=== PATIENT | female | born 1990 | race Two or more races ===

== ENCOUNTER 2025-06-15 19:13 | Inpatient (IN) | payer MEDICAID, OTHER ==
[~2025-06-15] VITALS: Ht 152.4 cm; Wt 92.1 kg
--- NOTE | 2025-06-15 19:43 | ED.PDOC ---
General HPI Comments HPI: 34-year-old female who came to ER for abdominal pain. Patient has been experiencing right lower quadrant abdominal pain for the past 2 days, associated with chills and back pain. States whenever she urinates, the pain in her right lower quadrant worsens. She denies any possibility of . Patient s tates she has low back pain as well. She states she is having pain in bilateral lower quadrants but worse on the right side. Initial Vitals BP:134/88 HR:123 RR:18 O2:96% Temp:98.8 F Past Medical History: Hypertension Past Surgical History: 3 times, tummy tuck Social History: Unremarkable Allergies: Denies HPI: Poor Historian. REVIEW OF SYSTEMS: CONSTITUTIONAL: Denies acute: fever, diaphoresis, generalized weakness. HEAD: Denies acute: headache, photophobia Eyes: Denies acute: Double vision, vision loss, eye pain, eye discharge. EARS: Denies acute: tinnitus, hearing loss, ear discharge, ear pain, THROAT: Denies acute: sore throat, swelling, difficulty swallowing , pain with swallowing, change in voice. NECK: Denies acute: neck pain, neck swelling, stiff neck. HEART: Denies acute : chest pain, palpitations, LUNGS: Denies acute: SOB, wheezing, cough, hemoptysis ABDOMEN: Denies acute: Nausea, Vomiting, diarrhea, melena , hematemesis, hematochezia SKIN: Denies acute: rash, redness, lesions, itchiness. EXTREMITIES: Denies acute: calf pain, numbness, tingling, weakness, denies pain in extremity. Denies acute: Low back pain. Neuro: Denies acute: focal neurological deficit, motor or sensory focal neurological deficit, tremors, seizure like activity, confusion, dizziness, change in mental status, loss of bowel or bladder function, cauda equina like symptoms. : Denies acute: dysuria, hematuria, increase in urinary frequency. PSYCH: Denies acute: hallucination, suicidal ideation, homicidal ideation. FEMALE: Denies acute: abnormal vaginal bleeding, foul odor, unusual discharge. PHYSICAL EXAM: General: ----mild----acute distress, awake and alert. Head: normocephalic, atraumatic. Neck: supple, trachea is midline, no swelling. Throat: Normal phonation. Eyes:, no erythema, no purulent discharge, no proptosis, no icterus. Heart: regular tachycardic, no significant murmur appreciated. Lungs: no apparent respiratory distress, Able to speak in full sentences. No wheezing, no rhonchi, no crackles. No stridors Clear to auscultation bilaterally. Abdomen: Right and left lower quadrant tender to palpation, non distended, soft, no guarding, no rebound, + bowel sounds. Neuro: Awake, Alert, oriented to name, self, situation, follows commands GCS=15. Speech is normal. Skin: no petechia, no purpura, no cyanosis, non-pale, not jaundice. Lower extremities: --no - Pitting edema no deformity, no focal swelling, no calf TTP. Makes eye contact. moves all four extremities. Face: no apparent facial droop. CVA tenderness to percussion bilaterally. Ambulating in the ED independently. ED COURSE: DISCLAIMER: This medical document was created using an electronic medical record system with voice recognition software and computerized dictation system. Although this document has been carefully reviewed, there might still be some phonetic and typographical errors. Occasional wrong-word or "sound-alike" substitutions may have occurred due to the inherent limitations of voice recognition software. These areas are purely typographical due to imperfections of the software programs and do not reflect any compromise in the patient's medical care. Please read the chart carefully and recognize, using context, where these substitutions have occurred. 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 Was a procedure done?: No Differential Diagnosis Kidney stone (Female): Musculoskeletal pain, Ovarian torsion, Pyelonephritis, Renal failure, Strain, Urinary obstruction, Urolithiasis Urinary Problem (Female): Pyelonephritis, Urinary retention, Urolithiasis, UTI X-Ray, Labs, Meds, VS Vital Signs Date Time Temp Pulse Resp B/P (MAP) Pulse Ox O2 Delivery O2 Flow Rate FiO2 06/15/25 20:50 Room Air* 0 21 06/15/25 20:50 100.3 100.3 06/15/25 20:20 101.8 119 18 117/76 (90) 98 101.8 06/15/25 19:17 98.8 123 18 134/88 96 98.8 Lab Test 06/15/25 20:00 Range/Units White Blood Count 13.9 H 4.4-10.8 10^3/uL Red Blood Count 5.05 4.0-5.20 10^6/uL Hemoglobin 15.0 12.2-16.2 g/dL Hematocrit 43.4 36.0-46.0 % Mean Corpuscular Volume 85.9 80.0-100.0 fL Mean Corpuscular Hemoglobin 29.8 28.0-32.0 pg Mean Corpuscular Hemoglobin Concent 34.6 32.0-36.0 g/dL Red Cell Distribution Width 14.0 11.8-14.3 % Platelet Count 188 140-450 10^3/uL Mean Platelet Volume 8.1 6.9-10.8 fL Neutrophils (%) (Auto) 80.7 H 37.0-80.0 % Lymphocytes (%) (Auto) 12.3 10.0-50.0 % Monocytes (%) (Auto) 6.5 0.0-12.0 % Eosinophils (%) (Auto) 0.3 0.0-7.0 % Basophils (%) (Auto) 0.2 0.0-2.0 % Neutrophils # (Auto) 11.2 H 1.6-8.6 10 ^3/uL Lymphocytes # (Auto) 1.7 0.4-5.4 10 ^3/uL Monocytes # (Auto) 0.9 0-1.3 10 ^3/uL Eosinophils # (Auto) 0 0-0.8 10 ^3/uL Basophils # (Auto) 0 0-0.2 10 ^3/uL Nucleated Red Blood Cells 0.0 % Prothrombin Time 10.9 9.3-11.8 sec Prothrombin Time INR 1.03 0.9-1.15 Activated Partial Thromboplast Time 29.1 24.5-34.5 SEC Sodium Level 138 136-145 mmol/L Potassium Level 3.7 3.5-5.1 mmol/L Chloride Level 102 98-107 mmol/L Carbon Dioxide Level 26 20-31 mmol/L Anion Gap 10 5-15 Blood Urea Nitrogen 8 L 9-23 mg/dL Creatinine 0.82 0.550-1.02 mg/dL Glomerular Filtration Rate Calc 95 >90 mL/min BUN/Creatinine Ratio 9.8 L 10.0-20.0 Serum Glucose 92 74-106 mg/dL Hemoglobin A1c Pending Lactic Acid Level 1.2 0.4-2.0 mmol/L Calcium Level 9.4 8.7-10.4 mg/dL Total Bilirubin 0.9 0.2-1.0 mg/dL Aspartate Amino Transferase (AST) 52 H 13-40 U/L Alanine Aminotransferase (ALT) 100 H 7-40 U/L Alkaline Phosphatase 82 46-116 U/L Total Protein 7.8 5.7-8.2 g/dL Albumin 4.6 3.2-4.8 g/dL Triglycerides Level 110 < 150 mg/dL Cholesterol Level 179 < 200 mg/dL LDL Cholesterol 113 H < 100 mg/dL HDL Cholesterol 56 40-59 mg/dL Lipase 30 12-53 U/L Current Medications Medications (Trade) Dose Ordered Sig/Luz Route Start Time Stop Time Status Last Admin Lactated Ringer's 1,700 ml @ 1,700 mls/hr ONCE ONCE IV 06/15/25 20:00 06/15/25 20:59 DC 06/15/25 21:00 Cefepime HCl 50 ml @ 50 mls/hr ONCE ONCE IV 06/15/25 20:15 06/15/25 21:14 DC 06/15/25 20:43 [place] [address] Ph: [phone] DIAGNOSTIC IMAGING Diagnostic Imaging Report : [id number] Signed PATIENT: JOHN WYATT ACCT: [id number] UNIT: [id number] : 1990 LOC: OVERFLOW ROOM / BED: [facility]-ER / A AGE / SEX: 34 / F ADM STATUS: ADM IN SERVICE 04 ORDERING PHYSICIAN: JOSE GARCIA DO PROCEDURE(s): ABPL - CT AB PEL WO CON-NO ORAL OR IV REASON: abd pain ORDER NUMBER(s): [id number], ACCESSION NUMBER(s): [id number] Exam: CT CT AB PEL WO CON-NO ORAL OR IV History: abd pain Comparison Study: None TECHNIQUE: Multidetector CT of the abdomen and pelvis was performed from lung bases to pubic symphysis. Imaging was performed without IV contrast. Axial, coronal, and sagittal multiplanar reformats were obtained from the axial data set by the technologist. RADIATION DOSE: CTDI vol 14.65 mGy. DLP 970.4 mGy.cm Findings: Limited evaluation of the solid organs in the absence of IV contrast. Lungs: The lung bases are clear. Liver: Diffuse hypoattenuation of the liver suggestive of hepatic steatosis. Mild hepatomegaly. Spleen: Unremarkable. Pancreas: Unremarkable. Gallbladder: Unremarkable. Adrenals: Unremarkable Kidneys: Left renal cysts. No hydronephrosis. Pelvic Viscera: Unremarkable. Vasculature: Unremarkable. Retroperitoneum: Unremarkable. Bowel: No bowel obstruction. No CT evidence of appendicitis. Musculoskeletal: Unremarkable. Soft tissues: Unremarkable Impression: 1. No acute abdominopelvic abnormality. 2. Hepatomegaly and hepatic steatosis. ATED BY: JONH CRESPO MD DICTATED DATE/TIME: 06/15/252110 SIGNED BY: JONH CRESPO MD SIGNED DATE/TIME: 06/15/252110 CC: [place] [address] Ph: [phone] DIAGNOSTIC IMAGING Diagnostic Imaging Report : [id number] Signed PATIENT: JOHN WYATT ACCT: [id number] UNIT: [id number] : 1990 LOC: OVERFLOW ROOM / BED: [address] [place] [address] / AGE / SEX: 34 / F ADM STATUS: ADM IN SERVICE 56 ORDERING PHYSICIAN: JOSE GARCIA DO PROCEDURE(s): CXRP - CHEST PORTABLE REASON: sepsis ORDER NUMBER(s): [id number], ACCESSION NUMBER(s): [id number] INDICATION: sepsis TECHNIQUE: Frontal view of the chest. COMPARISON: None FINDINGS/IMPRESSION: The lungs are clear. The cardiomediastinal silhouette is unremarkable. No pleural effusion or pneumothorax. No acute osseous abnormality. ATED BY: JONH CRESPO MD DICTATED DATE/TIME: 06/15/252128 SIGNED BY: JONH CRESPO MD SIGNED DATE/TIME: 06/15/252128 CC: Time of 1ST Reevaluation: 19:43 Reevaluation 1ST: Unchanged Patient Education/Counseling: Diagnosis, Treatment Family Education/Counseling: Diagnosis, Treatment SEPSIS Sepsis Screen Date sepsis recognized/suspect: Jun 15, 2025 Time Sepsis recognized/suspect: 1918 Recent Procedure: No On Antibiotic Therapy: No Respiratory Rate >20: No Heart Rate >90: Yes Temp<36 C (96.8 F) or >38.3 C: No SBP <90 or MAP <65 mmHG: No New Acute Mental Status Change: No Is the patient on CPAP, BIPAP,: No Physician Orders Chest Portable (06/15/25 19:57) Accucheck (06/15/25 19:57) Blood Culture (06/15/25 19:57) Notify Md If Map <65 Or Bp<90 (06/15/25 19:57) If Map<65 Start Vasopressor (06/15/25 19:57) Sepsis Reassesment After Fluid (06/15/25 20:57) Ct Ab Pel Wo Con-No Oral Or Iv (06/15/25 20:05) Cefepime 1gm/50ml (Maxipime 1gm/50ml) (06/16/25 06:00) Vital Signs Date Time Temp Pulse Resp B/P (MAP) Pulse Ox O2 Delivery O2 Flow Rate FiO2 06/15/25 20:50 Room Air* 0 21 06/15/25 20:50 100.3 100.3 06/15/25 20:20 101.8 119 18 117/76 (90) 98 101.8 06/15/25 19:17 98.8 123 18 134/88 96 98.8 Laboratory Tests Test 06/15/25 20:00 Lactic Acid Level 1.2 mmol/L (0.4-2.0) White Blood Count 13.9 10^3/uL (4.4-10.8) H Medications Medications Dose Ordered Sig/Luz Route Start Time Stop Time Status Last Admin Dose Admin Cefepime HCl 50 ml @ 50 mls/hr ONCE ONCE IV 06/15/25 20:15 06/15/25 21:14 DC 06/15/25 20:43 Lactated Ringer's 1,700 ml @ 1,700 mls/hr ONCE ONCE IV 06/15/25 20:00 06/15/25 20:59 DC 06/15/25 21:00 Critical Care Note Critical Care Time?: No Stability Stability form required: No I personally scribed for JOSE GARCIA DO ([email or web address]) on 06/15/25 at 19:43. Electronically submitted by Rodriguez Thompson ([facility] I personally scribed for JOSE GARCIA DO ([email or web address]) on 06/15/25 at 19:49. Electronically submitted by Rodriguez Thompson ([facility]). I personally scribed for JOSE GARCIA DO ([email or web address]) on 06/15/25 at 19:54. Electronically submitted by Rodriguez Thompson ([facility]). I personally scribed for JOSE GARCIA DO ([email or web address]) on 06/15/25 at 21:57. Electronically submitted by Rodriguez Thompson ([facility]). JOSE GARCIA DO Jun 15, 2025 19:43
[2025-06-15 20:26] LABS: Hematocrit 43.4 % (36.0-46.0); Hemoglobin 15.0 g/dL (12.2-16.2); Mean Corpuscular Hemoglobin 29.8 pg (28.0-32.0); Mean Corpuscular Volume 85.9 fL (80.0-100.0); Nucleated Red Blood Cells % 0.0 %
[2025-06-15] MEDS: LACTATED RINGER'S 1,700 ML IV ONE (20:30)
[2025-06-15 20:38] LABS: Albumin 4.6 g/dL (3.2-4.8); Alkaline Phosphatase 82 U/L (46-116); Anion Gap 10 (5-15); BUN/Creatinine Ratio 9.8 (10.0-20.0); Calcium 9.4 mg/dL (8.7-10.4); Carbon Dioxide 26 mmol/L (20-31); Chloride 102 mmol/L (98-107); Glucose 92 mg/dL (74-106); Potassium 3.7 mmol/L (3.5-5.1); Sodium 138 mmol/L (136-145); Total Protein 7.8 g/dL (5.7-8.2)
[2025-06-15 20:39] LABS: Alanine Aminotransferase 100 U/L (7-40); Bilirubin, Total 0.9 mg/dL (0.2-1.0); Blood Urea Nitrogen 8 mg/dL (9-23)
[2025-06-15 20:42] LABS: INR 1.03 (0.9-1.15); Partial Thromboplastin Time 29.1 SEC (24.5-34.5); Prothrombin Time 10.9 sec (9.3-11.8)
[2025-06-15] MEDS: CEFEPIME 1GM/50ML 50 ML IV ONE (20:43)
--- NOTE | 2025-06-15 21:13 | DVH ---
Exam: CT CT AB PEL WO CON-NO ORAL OR IV History: abd pain Comparison Study: None TECHNIQUE: Multidetector CT of the abdomen and pelvis was performed from lung bases to pubic symphysi s. Imaging was performed without IV contrast. Axial, coronal, and sagittal multiplanar reformats were obtained from the axial data set by the technologist. RADIATION DOSE: CTDI vol 14.65 mGy. DLP 970.4 mGy.cm Findings: Limited evaluation of the solid organs in the absence of IV contrast. Lungs: The lung bases are clear. Liver: Diffuse hypoattenuation of the liver suggestive of hepatic steatosis. Mild hepatomegaly. Spleen: Unremarkable. Pancreas: Unremarkable. Gallbladder: Unremarkable. Adrenals: Unremarkable Kidneys: Left renal cysts. No hydronephrosis. Pelvic Viscera: Unremarkable. Vasculature: Unremarkable. Retroperitoneum: Unremarkable. Bowel: No bowel obstruction. No CT evidence of appendicitis. Musculoskeletal: Unremarkable. Soft tissues: Unremarkable Impression: 1. No acute abdominopelvic abnormality. 2. Hepatomegaly and hepatic steatosis.
--- NOTE | 2025-06-15 21:16 | DVHHPRES ---
History of Present Illness Resident Creating Document: KIM CLIFTON RESIDENT History of Present Illness 34-year-old female with no past medical history presented with complaints of lower abdominal pain right greater than left and some associated chills for one day. Patient mentioned that yesterday she started having abdominal pain which is pressure-like, on and off, no significant relieving or aggravating factors, radiating to back, associated with right greater than left back pain, chills and fever. Patient mentioned associated headache which is 5/10, improved with ibuprofen and paracetamol and mild neck pain. pt mentions whenever she urinates, the pain in her right lower quadrant worsens, but she did not have any symptoms of dysuria Patient denied any nausea, vomiting, chest pain, shortness of breath, dizziness . Denied similar complaints in the past Past medical history None Past surgical history section and subsequent tubectomy one year ago Social history Denied smoking, marijuana, alcohol, any other drug intake Lives with the Medication history None Allergic history None Family history Nonsignificant Menstrual history Last menstrual period May 30, 2025 Status post tubectomy Review of Systems Review of Systems Review of system As done in the [facility] Allergies: Coded Allergies: NO KNOWN ALLERGIES (Unverified , 06/15/25) Medications Current Medications Medications Dose Ordered Sig/Luz Route Start Time Stop Time Status Last Admin Dose Admin Cefepime HCl 50 ml @ 12.5 mls/hr Q8HR IV 06/16/25 06:00 Acetaminophen 650 mg Q6HP PRN PO 06/15/25 21:00 UNV Exam Vital Signs Vital Signs Date Time Temp Pulse Resp B/P (MAP) Pulse Ox O2 Delivery O2 Flow Rate FiO2 06/15/25 20:20 101.8 119 18 117/76 (90) 98 101.8 Exam Examination General Appearance: Alert, Oriented X3, Cooperative, No acute distress HEENT: EOMI Respiratory: Clear to auscultation, Normal air movement Cardiovascular: Regular rate, Normal S1, Normal S2 Abdominal: Bilateral lower abdominal tenderness right greater than left, no guarding, no rigidity, soft, bilateral flank tenderness, right greater than left Extremities: No cyanosis, No edema, Normal pulses, No tenderness/swelling Skin: No rashes, No breakdown Neuro: Normal speech and tone Labs/Xrays Labs Test 06/15/25 20:00 Range/Units White Blood Count 13.9 H 4.4-10.8 10^3/uL Red Blood Count 5.05 4.0-5.20 10^6/uL Hemoglobin 15.0 12.2-16.2 g/dL Hematocrit 43.4 36.0-46.0 % Mean Corpuscular Volume 85.9 80.0-100.0 fL Mean Corpuscular Hemoglobin 29.8 28.0-32.0 pg Mean Corpuscular Hemoglobin Concent 34.6 32.0-36.0 g/dL Red Cell Distribution Width 14.0 11.8-14.3 % Platelet Count 188 140-450 10^3/uL Mean Platelet Volume 8.1 6.9-10.8 fL Neutrophils (%) (Auto) 80.7 H 37.0-80.0 % Lymphocytes (%) (Auto) 12.3 10.0-50.0 % Monocytes (%) (Auto) 6.5 0.0-12.0 % Eosinophils (%) (Auto) 0.3 0.0-7.0 % Basophils (%) (Auto) 0.2 0.0-2.0 % Neutrophils # (Auto) 11.2 H 1.6-8.6 10 ^3/uL Lymphocytes # (Auto) 1.7 0.4-5.4 10 ^3/uL Monocytes # (Auto) 0.9 0-1.3 10 ^3/uL Eosinophils # (Auto) 0 0-0.8 10 ^3/uL Basophils # (Auto) 0 0-0.2 10 ^3/uL Nucleated Red Blood Cells 0.0 % Prothrombin Time 10.9 9.3-11.8 sec Prothrombin Time INR 1.03 0.9-1.15 Activated Partial Thromboplast Time 29.1 24.5-34.5 SEC Sodium Level 138 136-145 mmol/L Potassium Level 3.7 3.5-5.1 mmol/L Chloride Level 102 98-107 mmol/L Carbon Dioxide Level 26 20-31 mmol/L Anion Gap 10 5-15 Blood Urea Nitrogen 8 L 9-23 mg/dL Creatinine 0.82 0.550-1.02 mg/dL Glomerular Filtration Rate Calc 95 >90 mL/min BUN/Creatinine Ratio 9.8 L 10.0-20.0 Serum Glucose 92 74-106 mg/dL Lactic Acid Level 1.2 0.4-2.0 mmol/L Calcium Level 9.4 8.7-10.4 mg/dL Total Bilirubin 0.9 0.2-1.0 mg/dL Aspartate Amino Transferase (AST) 52 H 13-40 U/L Alanine Aminotransferase (ALT) 100 H 7-40 U/L Alkaline Phosphatase 82 46-116 U/L Total Protein 7.8 5.7-8.2 g/dL Albumin 4.6 3.2-4.8 g/dL SEPSIS Sepsis Screen Date sepsis recognized/suspect: Jun 15, 2025 Time Sepsis recognized/suspect: 1918 Recent Procedure: No On Antibiotic Therapy: No Respiratory Rate >20: No Heart Rate >90: Yes Temp<36 C (96.8 F) or >38.3 C: No SBP <90 or MAP <65 mmHG: No New Acute Mental Status Change: No Is the patient on CPAP, BIPAP,: No Physician Orders Urinalysis (06/15/25 19:57) Chest Portable (06/15/25 19:57) Accucheck (06/15/25 19:57) Blood Culture (06/15/25 19:57) Notify Md If Map <65 Or Bp<90 (06/15/25 19:57) If Map<65 Start Vasopressor (06/15/25 19:57) Sepsis Reassesment After Fluid (06/15/25 20:57) Cefepime 1gm/50ml (Maxipime 1gm/50ml) (06/15/25 20:15) Ct Ab Pel Wo Con-No Oral Or Iv (06/15/25 20:05) Cefepime 1gm/50ml (Maxipime 1gm/50ml) (06/16/25 06:00) Admit (06/15/25 21:00) Code Status (06/15/25 21:00) Regular Diet (06/16/25 Breakfast) Acetaminophen Tablet (Tylenol Tablet) (06/15/25 21:00) Notify Md Of Changes From Base (06/15/25 21:00) Advance Directive (06/15/25 21:00) Ambulate Every 4hours Q4H (06/15/25 21:00) Oxygen By Nasal Cannula (06/15/25 21:00) Stat Ekg For Chest Pain (06/15/25 21:00) Notify Md Of Changes From Base (06/15/25 21:00) Panel Coverer For 24 Hours (06/15/25 21:00) Emergency Dysrhythmia Protocol (06/15/25 21:00) Rhythm Strips Once Every Shift (06/15/25 21:00) Electrocardigram (06/15/25 21:00) Lipase (06/15/25 21:00) Urinalysis (06/15/25 21:00) Urine Bacterial Culture (06/15/25 21:00) Mrsa Screen (06/15/25 21:00) Vital Signs Date Time Temp Pulse Resp B/P (MAP) Pulse Ox O2 Delivery O2 Flow Rate FiO2 06/15/25 20:20 101.8 119 18 117/76 (90) 98 101.8 06/15/25 19:17 98.8 123 18 134/88 96 98.8 Laboratory Tests Test 06/15/25 20:00 Lactic Acid Level 1.2 mmol/L (0.4-2.0) White Blood Count 13.9 10^3/uL (4.4-10.8) H Medications Medications Dose Ordered Sig/Luz Route Start Time Stop Time Status Last Admin Dose Admin Cefepime HCl 50 ml @ 50 mls/hr ONCE ONCE IV 06/15/25 20:15 06/15/25 21:14 06/15/25 20:43 50 MLS/HR Assessment/Plan Assessment/Plan Assessment/plan # sepsis due to likely UTI -IV fluids 30 cc/kg IV antibiotics cefepime Blood culture Lactic acid Urine culture # complicated UTI with pyelonephritis CT abdominal pelvis IV antibiotics Urine culture # Hepatomegaly and hepatic steatosis 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 Bird Plan discussed with: Patient, Other My Orders Orders - KIM CLIFTON RESIDENT Procedure Category Date Status Time Admit ADMIT 06/15/25 Transmitted 21:00 Code Status CODE 06/15/25 Transmitted 21:00 Regular Diet DIET 06/16/25 Transmitted Breakfast Acetaminophen Tablet PHA 06/15/25 Logged (Tylenol Tablet) 21:00 Notify Md Of Changes [facility] 06/15/25 In Process From Base 21:00 Advance Directive [facility] 06/15/25 In Process 21:00 Ambulate Every 4hours [facility] 06/15/25 In Process 21:00 Oxygen By Nasal RT 06/15/25 Transmitted Cannula 21:00 Stat Ekg For Chest [facility] 06/15/25 In Process Pain 21:00 Notify Md Of Changes [facility] 06/15/25 In Process From Base 21:00 Panel Coverer For [facility] 06/15/25 In Process 24 Hours 21:00 Emergency Dysrhythmia [facility] 06/15/25 In Process Protocol 21:00 Rhythm Strips Once [facility] 06/15/25 In Process Every Shift 21:00 Electrocardigram EKG 06/15/25 Logged 21:00 Lipase LAB 06/15/25 Logged 21:00 Urinalysis LAB 06/15/25 Logged 21:00 Urine Bacterial JACEY 06/15/25 Logged Culture 21:00 Mrsa Screen JACEY 06/15/25 Logged 21:00 Date of Service: Jun 15, 2025 Billing Provider: ANNI BIRD MD Common Visit Codes: 41628-BEHFFUX INP/OBS CARE (HIGH) Secondary Visit Codes: 82373-[id number] CARE PLAN 30 MINUTES KIM CLIFTON RESIDENT Jun 15, 2025 21:16
[2025-06-15] MEDS ORDERED: ONDANSETRON HCL 4 MG/2 ML VIAL IV PRN (21:30)
--- NOTE | 2025-06-15 21:31 | DVH ---
INDICATION: sepsis TECHNIQUE: Frontal view of the chest. COMPARISON: None FINDINGS/IMPRESSION: The lungs are clear. The cardiomediastinal silhouette is unremarkable. No pleural effusion or pneumo thorax. No acute osseous abnormality.
[2025-06-15 21:32] LABS: Urine Protein, UAD Negative (Negative)
[2025-06-15 21:47] LABS: Triglycerides 110 mg/dL (< 150)
[2025-06-15 21:49] LABS: Cholesterol 179 mg/dL (< 200); HDL Cholesterol 56 mg/dL (40-59)
--- NOTE | 2025-06-15 23:02 | DVH ---
Procedure: US PELVIC 06/15/2025 09:53 PM Indication: lower abd pain Comparison: US TRANSVAGINAL US NON OB on DOS: 06/15/25 Technique: Real-time grayscale and color images were obtained . FINDINGS: Limited evaluation. UTERUS: Anteverted, measuring 11.7 x 5.3 x 6.6 cm in length. Homogeneous myometrium without a discr ete lesion. Small cystic lesions in the region of the cervix. ENDOMETRIAL STRIPE: 6 mm in thickness. Homogenous echotexture. No fluid in the endometrial canal. CERVIX: Few subcentimeter simple Nabothian cysts are seen. RIGH OVARY: 4.2 x 3.1 x 3.5 cm in length. 23 mL in volume. Preserved vascular flow. 2.8 cm right ad nexal cyst. LEFT OVARY: Not visualized. OTHER: None. IMPRESSION: 1. 2.8 cm right adnexal cyst.
[2025-06-16] VITALS (8 sets, daily range): BP systolic 106–136; BP diastolic 48–90; PULSE 83–106; RESP 15–18; TEMP 98–99.8; O2SAT 97–98
[2025-06-16] MEDS: ACETAMINOPHEN 325 MG TAB PO PRN (00:05)
[2025-06-16 05:18] LABS: Hematocrit 39.1 % (36.0-46.0); Hemoglobin 13.0 g/dL (12.2-16.2); Mean Corpuscular Hemoglobin 29.1 pg (28.0-32.0); Mean Corpuscular Volume 87.3 fL (80.0-100.0); Nucleated Red Blood Cells % 0.0 %
[2025-06-16] MEDS: LACTATED RINGER'S 1,000 ML IV SCH (05:29)
[2025-06-16 05:35] LABS: Alkaline Phosphatase 68 U/L (46-116); Carbon Dioxide 25 mmol/L (20-31); Chloride 106 mmol/L (98-107)
[2025-06-16 05:36] LABS: Albumin 3.8 g/dL (3.2-4.8); Anion Gap 10 (5-15); BUN/Creatinine Ratio 10.1 (10.0-20.0); Bilirubin, Total 0.8 mg/dL (0.2-1.0); Glucose 103 mg/dL (74-106); Magnesium 1.9 mg/dL (1.6-2.6); Potassium 3.7 mmol/L (3.5-5.1); Sodium 141 mmol/L (136-145); Total Protein 6.5 g/dL (5.7-8.2)
[2025-06-16 05:38] LABS: Alanine Aminotransferase 70 U/L (7-40); Blood Urea Nitrogen 8 mg/dL (9-23); Calcium 8.7 mg/dL (8.7-10.4)
[2025-06-16] MEDS: CEFEPIME 1GM/50ML 50 ML IV SCH (05:52)
[2025-06-16] MEDS: VANCOMYCIN 1GM/250ML KIT 250 ML IV ONE (06:48)
[2025-06-16] MEDS: SODIUM CHLORIDE 0.9% 1,000 ML IV ONE (09:00)
--- NOTE | 2025-06-16 12:42 | DVH ---
INDICATION: Evaluate gallbladder TECHNIQUE: Multiple real-time sonographic images of the abdomen were obtained. COMPARISON: None FINDINGS: Increased parenchymal echogenicity consistent steatosis. The liver measures 16.7 cm. No in trahepatic biliary ductal dilatation is noted. The gallbladder wall measures 0.24 cm and is unremarkable. Gallstones. The common duct measures 0 .4 cm and is unremarkable. No pericholecystic fluid is noted. Negative sonographic Angeles's sign The right kidney measures 9.1cm. No hydronephrosis. The pancreas is not well visualized due to obscuration from bowel gas. The visualized portions of the IVC and aorta are grossly unremarkable. IMPRESSION: 1. Cholelithiasis with a negative sonographic angeles's sign.
[2025-06-16] MEDS ORDERED: IOHEXOL 300 MG/ML 100ML BOTTLE IJ ONE (13:19)
--- NOTE | 2025-06-16 14:02 | DVH ---
EXAM DESCRIPTION: CT CT AB PEL WITH IV CON ONLY CLINICAL HISTORY: R/O APPENDICITIS COMPARISON: US PELVIC on DOS: 06/15/25, CT CT AB PEL WO CON-NO ORAL OR IV on DOS: 06/15/25 TECHNIQUE: CT abdomen and pelvis with IV contrast was performed. Coronal and sagittal MPR images were generated. 17.08 CTDI, DLP = 17.08 / 950.87 Dose reduction technique with one or more of the following methods was performed: Automated exposure control, adjustment of the mA and/or kV according to patient size, use of iterative reconstruction te chnique FINDINGS: Lower chest: Clear lung bases. Liver: Diffusely decreased in attenuation. . Biliary: Noncalcified gallstones in the gallbladder. No gallbladder wall thickening. No pericholecyst itc fluid.. No biliary ductal dilatation. Pancreas: No fat stranding or focal lesion. Spleen: Normal in size.. No abnormalities detected Adrenal glands: No nodularity. Kidneys: Symmetric enhancement. No hydroureteronephrosis. 5 cm left renal cyst. Bladder: No bladder wall thickening. Reproductive organs: Normal. Bowel: No bowel wall thickening or dilatation. Normal appendix. Peritoneum: No free fluid. No free air. Vessels: Normal caliber abdominal aorta. Lymph nodes: No suspicious lymph nodes. Soft tissues: Unremarkable. . Osseous structures: No acute fracture or subluxation. No suspicious osseous lesions. Degenerative c hanges of the visualized thoracolumbar spine. IMPRESSION: 1. No evidence of appendicitis. 2. Cholelithiasis without evidence of acute cholecystitis. 3. Hepatic steatosis.
--- NOTE | 2025-06-16 16:22 | DVHPNRES ---
Progress Note Date Seen: Jun 16, 2025 Resident Creating Document: THOMPSON CASAREZ RESIDENT Medical Necessity Reason Pt with a Central, PICC or Fol: No Subjective Review of Systems Brief history on admission: 34-year-old female with past medical history of irritable bowel syndrome presented with complaints of lower abdominal pain right greater than left and some associated chills for one day. She described pain as sharp, 10/10, increases with movement and urination, radiates to right flank, associated with subjective fever and headaches. She has history of UTI with last episode in October this year, managed with antibiotic taken at home, unsure of antibiotic (obtain during a visit in [place]). Her last menstrual period was 05/30/2025, 4 day irregular cycle. She also reported an episode of bloody discharge per vagina last week outside of menstrual cycle. Denies any dysuria, chest pain, shortness of breath, nausea, vomiting, diarrhea, constipation. PMHx: Irritable bowel syndrome PSHx: section, liposuction Social history: Denies smoking, drug use. Occasional alcohol use. Full code, next to kin is . Home medication: Multivitamin Allergic history: No known allergies ROS: Constitutional: Denies weight loss, fever and chills. HEENT: Denies changes in vision and hearing. Respiratory: Denies shortness of breath and cough Cardiovascular: Denies chest discomfort or palpitations GI: Abdominal pain. Denies nausea, vomiting and diarrhea. : Bloody discharge per vagina. Denies dysuria and urinary frequency. Musculoskeletal: Denies myalgias and joint pain Skin: Denies rash and pruritus. Neurological: Denies dizziness, headache, vision or hearing problems 06/16/2025: Patient was examined at bedside today. Continues to complain of abdominal pain. Objective vital signs Vital Sign Date Time Temp Pulse Resp B/P (MAP) Pulse Ox O2 Delivery O2 Flow Rate FiO2 06/16/25 12:34 98.2 103 17 117/79 (92) 97 98.2 06/16/25 08:00 Room Air* 0 21 Total Intake and Output 06/15/25 06/15/25 06/16/25 15:00 23:00 07:00 Intake Total 50 ml 900 ml Balance 50 ml 900 ml medications Current Medications Medications Dose Ordered Sig/Luz Route Start Time Stop Time Status Last Admin Dose Admin Cefepime HCl 50 ml @ 12.5 mls/hr Q8HR IV 06/16/25 06:00 06/16/25 14:44 12.5 MLS/HR Acetaminophen 650 mg Q6HP PRN PO 06/15/25 21:00 06/16/25 05:51 650 MG Ondansetron HCl 4 mg Q4HPRN PRN IV 06/15/25 21:30 Metronidazole 100 ml @ 100 mls/hr Q8H IV 06/16/25 12:00 06/16/25 12:05 100 MLS/HR Examination General: Patient alert and oriented in person, place and time. Patient following commands. HEENT: Normocephalic, atraumatic, moist mucous membranes Respiratory/pulmonary: Clear lungs bilaterally, vesicular murmurs present in almost all lung martell, no associated crackles or wheezes. Cardiovascular: Normal heart sounds S1 and S2 with no associated murmurs Abdomen: Lower abdominal tenderness more pronounced in the right side of the abdomen, right flank tenderness on deep palpation Extremities: There is no peripheral edema present at the lower extremities. Peripheral Pulses: 3+ Radial (R). 3+ Radial (L). 3+ Dorsalis pedis (R). 3+ Dorsalis pedis(L) Skin: No rashes or pruritus, there is no sacral edema present at this time. Neurological: Intact cranial nerves with no focal neurologic deficits laboratory and microbiology Laboratory Tests 06/16/25 04:34 Test 06/16/25 04:34 Range/Units Serum Glucose 103 74-106 mg/dL Microbiology Date/Time Source Procedure Growth Status 06/15/25 21:18 Nose MRSA Screen - Final Complete 06/15/25 21:18 Voided Urine Urine Culture - Preliminary Resulted Problem List/Assessment/Plan Problem List/Assessment/Plan Sepsis due to below Complicated UTI with pyelonephritis, possible Pelvic inflammatory disease Right adnexal cyst Pelvic ultrasound shows 2.8 cm right adnexal cyst IV fluids 30 cc/kg IV antibiotics cefepime Blood culture, urine culture, ordered; chlamydia, gonorrhea, hepatitis, COVID, influenza serology ordered. Lactic acid WNL No MRSA detected in nose Hepatomegaly and hepatic steatosis likely due to NAFLD Mild Transaminitis due to NAFLD Monitor CMP Hstory of section History of tubectomy Cholelithiasis without acute cholecystitis Hepatic steatosis Appendicitis, ruled out CT shows cholelithiasis, hepatic steatosis. Negative for appendicitis DIET: NPO DVT PROPHYLAXIS: Lovenox GI PROPHYLAXIS: Protonix CODE STATUS: Goals of care discussed with patient at bedside for more than 16 minutes. Full code DISPOSITION: Telemetry Patient's status and plan discussed with the patient. Case discussed with Dr. Calvo Plan discussed with: Patient, Spouse, Other (Nurses) My Orders My Orders Orders - THOMPSON CASAREZ Procedure Category Date Status Time Acute Hepatitis Panel LAB 06/16/25 In Process 08:41 Chlamydia/Gc LAB 06/16/25 In Process Amplification 11:18 Npo (Nothing By DIET 06/16/25 Transmitted Mouth) Diet Lunch Ct Ab Pel With Iv Con CT 06/16/25 Resulted Only 12:59 Date of Service: Jun 16, 2025 Billing Provider: THOMPSON CASAREZ Common Visit Codes: [id number] INP/OBS CARE(HIGH) THOMPSON CASAREZ Jun 16, 2025 16:22
[2025-06-16] MEDS: PANTOPRAZOLE 40 MG TAB PO ONE (17:55)
[2025-06-16] MEDS: ENOXAPARIN SOD 40 MG/0.4 ML SYRINGE SC ONE (17:55)
[2025-06-17 01:00] VITALS: BP 124/70; PULSE 84; RESP 18; TEMP 97.5; O2SAT 97
[2025-06-17 05:00] VITALS: BP 118/79; PULSE 85; RESP 16; TEMP 97.5; O2SAT 98
[2025-06-17] MEDS: PANTOPRAZOLE 40 MG TAB PO SCH (05:26)
[2025-06-17 06:33] LABS: Hematocrit 39.7 % (36.0-46.0); Hemoglobin 13.2 g/dL (12.2-16.2); Mean Corpuscular Hemoglobin 28.9 pg (28.0-32.0); Mean Corpuscular Volume 86.8 fL (80.0-100.0); Nucleated Red Blood Cells % 0.0 %
[2025-06-17 06:52] LABS: Chloride 105 mmol/L (98-107); Potassium 3.6 mmol/L (3.5-5.1); Sodium 141 mmol/L (136-145)
[2025-06-17 06:53] LABS: Anion Gap 11 (5-15); Carbon Dioxide 25 mmol/L (20-31)
[2025-06-17 06:54] LABS: Calcium 8.8 mg/dL (8.7-10.4)
[2025-06-17 06:58] LABS: Glucose 99 mg/dL (74-106)
[2025-06-17 06:59] LABS: BUN/Creatinine Ratio 10.1 (10.0-20.0)
[2025-06-17 07:25] LABS: Blood Urea Nitrogen 7 mg/dL (9-23)
[2025-06-17 08:00] VITALS: PULSE 88; RESP 16; O2SAT 98
[2025-06-17 09:00] VITALS: BP 117/78; PULSE 88; RESP 16; TEMP 98.2; O2SAT 98
[2025-06-17] MEDS: ENOXAPARIN SOD 40 MG/0.4 ML SYRINGE SC SCH (09:20)
[2025-06-17 10:48] LABS: Albumin 3.9 g/dL (3.2-4.8); Alkaline Phosphatase 74.0 U/L (46-116); Bilirubin, Direct 0.2 mg/dL (<0.3); Bilirubin, Total 0.5 mg/dL (0.2-1.0); Total Protein 6.8 g/dL (5.7-8.2)
[2025-06-17 10:52] LABS: Alanine Aminotransferase 62.0 U/L (7-40)
[2025-06-17] MEDS ORDERED: METR-344 PO (11:08)
[2025-06-17] MEDS ORDERED: DOXY-286 PO (11:08)
[2025-06-17 11:13] LABS: Hepatitis B Surface Antigen Negative (Negative); Hepatitis C Antibody Negative (Negative)
[2025-06-17 12:30] VITALS: BP 120/78; PULSE 82; RESP 16; TEMP 36.8; O2SAT 96
--- NOTE | 2025-06-17 12:39 | DVHINCON2 ---
Date of service: Jun 17, 2025 Referring Physician hospoitalist Reason for Consultation ovarian cyst History of Present Illness pt is admitte dfor possible sepsis and pyelo.she denies having wilma aub or pelvic pain. last pap was 2 yrs ago,she has hx of abn pap.she denies any dyspaurina and dysmenorrhea pelvic us reveals 2.8 cm simple ovarian cyst Past Medical History na Past Surgical History 3cs,salpingectomy vs tubal ligation Family History na Social History no tobacco or etoh 3cs,2nsvd,4 sab Patient Family History: FH: cancer Grandmother Grandfather Allergies: Coded Allergies: NO KNOWN ALLERGIES (Unverified , 06/15/25) Home Meds Active Scripts Metronidazole (Flagyl) 500 Mg Tab, 1 TAB PO TID for 7 Days, #21 TAB Prov:JET LOPEZ RESIDENT 06/17/25 Doxycycline Hyclate (DOXYCYCLINE HYCLATE) 100 Mg Tab, 1 TAB PO BID for 7 Days, #14 TAB Prov:JET LOPEZ RESIDENT 06/17/25 Current Medications Current Medications Medications (Trade) Dose Ordered Sig/Luz Route PRN Reason Start Time Stop Time Status Last Admin Enoxaparin Sodium (Lovenox) 40 mg DAILY SC 06/17/25 10:00 06/17/25 09:20 Pantoprazole Sodium (Protonix Tablet) 40 mg DAILY@0600 PO 06/17/25 06:00 06/17/25 05:26 Review of Systems Constitutional: no fever, chill, weight loss HEENT: no eye pain, no hearing loss, no oral lesion, no scleral icterus Heart: no chest pain, no chest pressure Lung: no cough, no dyspnea with exertion Abdomen: see HPI : no pain with urination, normal appearing urine Musculoskeletal: no joint pain, pos for cva tendernbess rgreater than left side Neurological: no seizure, no loss of sensation, no weakness in extremities Pysch: no depression, no anxiety Derm: no rash, no jaundice Vital Signs Vital Signs Date Time Temp Pulse Resp B/P (MAP) Pulse Ox O2 Delivery O2 Flow Rate FiO2 06/17/25 09:00 98.2 88 16 117/78 (91) 98 98.2 06/17/25 08:00 Room Air* 0 21 Physical Exam alert and oriented polish speaking femALE IN NAD HEENT:WNL NECK: NL CARDIAC: RRR PULMONARY: CTA ABDOMEN: NL,NT MUSCULOSKELETAL:R CVA TENDERNESS PELVIC-EXT GENT WNL,VAG NL,CX NL UTERUS 12WKS SIZE Labs/Diagnostic Data Labs Test 06/17/25 06:03 06/16/25 04:34 06/15/25 21:18 06/15/25 20:00 Range/Units White Blood Count 8.7 # 4.4-10.8 10^3/uL Red Blood Count 4.57 4.0-5.20 10^6/uL Hemoglobin 13.2 12.2-16.2 g/dL Hematocrit 39.7 36.0-46.0 % Mean Corpuscular Volume 86.8 80.0-100.0 fL Mean Corpuscular Hemoglobin 28.9 28.0-32.0 pg Mean Corpuscular Hemoglobin Concent 33.3 32.0-36.0 g/dL Red Cell Distribution Width 14.0 11.8-14.3 % Platelet Count 178 140-450 10^3/uL Mean Platelet Volume 8.1 6.9-10.8 fL Neutrophils (%) (Auto) 69.4 37.0-80.0 % Lymphocytes (%) (Auto) 19.9 10.0-50.0 % Monocytes (%) (Auto) 8.9 0.0-12.0 % Eosinophils (%) (Auto) 1.6 0.0-7.0 % Basophils (%) (Auto) 0.2 0.0-2.0 % Neutrophils # (Auto) 6.0 1.6-8.6 10 ^3/uL Lymphocytes # (Auto) 1.7 0.4-5.4 10 ^3/uL Monocytes # (Auto) 0.8 0-1.3 10 ^3/uL Eosinophils # (Auto) 0.1 0-0.8 10 ^3/uL Basophils # (Auto) 0 0-0.2 10 ^3/uL Nucleated Red Blood Cells 0.0 % Sodium Level 141 136-145 mmol/L Potassium Level 3.6 3.5-5.1 mmol/L Chloride Level 105 98-107 mmol/L Carbon Dioxide Level 25 20-31 mmol/L Anion Gap 11 5-15 Blood Urea Nitrogen 7 L 9-23 mg/dL Creatinine 0.69 0.550-1.02 mg/dL Glomerular Filtration Rate Calc 115 >90 mL/min BUN/Creatinine Ratio 10.1 10.0-20.0 Serum Glucose 99 74-106 mg/dL Calcium Level 8.8 8.7-10.4 mg/dL Total Bilirubin 0.5 0.2-1.0 mg/dL Direct Bilirubin 0.2 <0.3 mg/dL Aspartate Amino Transferase (AST) 29 13-40 U/L Alanine Aminotransferase (ALT) 62 H 7-40 U/L Alkaline Phosphatase 74 46-116 U/L Total Protein 6.8 5.7-8.2 g/dL Albumin 3.9 3.2-4.8 g/dL Magnesium Level 1.9 1.6-2.6 mg/dL C-Reactive Protein High Sensitivity 12.08 H <1.0 mg/dL Thyroid Stimulating Hormone (TSH) 2.72 0.55-4.78 uIU/mL Hepatitis A IgM Antibody Negative Hepatitis B Surface Antigen Negative Negative Hepatitis B Core IgM Antibody Negative Negative Hepatitis C Antibody Negative Negative Urine Color Colorless Yellow Urine Clarity Clear Clear Urine pH 6.5 5.0-9.0 Urine Specific [place] 1.004 1.001-1.035 Urine Protein Negative Negative Urine Ketones Negative Negative Urine Blood Negative Negative /uL Urine Nitrite Negative Negative Urine Bilirubin Negative Negative Urine Urobilinogen Normal Negative mg/dL Urine Leukocyte Esterase Negative Negative /uL Urine RBC 1 0 - 4 /hpf Urine Microscopic WBC 1 0-5 /HPF Urine Squamous Epithelial Cells Few <5 /hpf Urine Bacteria None seen None Seen /hpf Urine Glucose Normal Normal mg/dL Urine Test Negative Negative Prothrombin Time 10.9 9.3-11.8 sec Prothrombin Time INR 1.03 0.9-1.15 Activated Partial Thromboplast Time 29.1 24.5-34.5 SEC Hemoglobin A1c 5.3 <5.7 % A1C Lactic Acid Level 1.2 0.4-2.0 mmol/L Triglycerides Level 110 < 150 mg/dL Cholesterol Level 179 < 200 mg/dL LDL Cholesterol 113 H < 100 mg/dL HDL Cholesterol 56 40-59 mg/dL Lipase 30 12-53 U/L Microbiology Date/Time Source Procedure Growth Status 06/15/25 21:18 Nose MRSA Screen - Final Complete 06/15/25 21:18 Voided Urine Urine Culture - Preliminary Resulted 06/15/25 20:10 Blood Blood Culture - Preliminary NO GROWTH AFTER 24 HOURS OF INCUBATION. Resulted Primary Diagnosis PYELONEPHRITIS RIGHT OVARIAN CYST APPEARS NL Plan RECOMMEND FU OUTPT FOR PAP AND FU CYST WILL SIGN OFF THANK YOU Plan discussed with: Patient Visit Coding OBGYN Date of Service: Jun 17, 2025 Billing Provider: WARREN MURRIETA DO [employer]UL[employer]ER Common Visit Codes: [id number] INP/OBS CARE(HIGH) [facility]KER Consultation Codes: [id number] CONSULT <80MIN WARREN MURRIETA DO Jun 17, 2025 12:39
--- NOTE | 2025-06-17 14:32 | DVHDSRES ---
Discharge Summary Date of Admission Resident Creating Document: THOMPSON CASAREZ RESIDENT Jun 15, 2025 at 21:00 Date of Discharge: Jun 17, 2025 Labs/Diagnostic Data: Laboratory Results Test 06/17/25 06:03 06/16/25 04:34 06/15/25 21:18 06/15/25 20:00 White Blood Count 8.7 10^3/uL (4.4-10.8) Red Blood Count 4.57 10^6/uL (4.0-5.20) Hemoglobin 13.2 g/dL (12.2-16.2) Hematocrit 39.7 % (36.0-46.0) Mean Corpuscular Volume 86.8 fL (80.0-100.0) Mean Corpuscular Hemoglobin 28.9 pg (28.0-32.0) Mean Corpuscular Hemoglobin Concent 33.3 g/dL (32.0-36.0) Red Cell Distribution Width 14.0 % (11.8-14.3) Platelet Count 178 10^3/uL (140-450) Mean Platelet Volume 8.1 fL (6.9-10.8) Neutrophils (%) (Auto) 69.4 % (37.0-80.0) Lymphocytes (%) (Auto) 19.9 % (10.0-50.0) Monocytes (%) (Auto) 8.9 % (0.0-12.0) Eosinophils (%) (Auto) 1.6 % (0.0-7.0) Basophils (%) (Auto) 0.2 % (0.0-2.0) Neutrophils # (Auto) 6.0 10 ^3/uL (1.6-8.6) Lymphocytes # (Auto) 1.7 10 ^3/uL (0.4-5.4) Monocytes # (Auto) 0.8 10 ^3/uL (0-1.3) Eosinophils # (Auto) 0.1 10 ^3/uL (0-0.8) Basophils # (Auto) 0 10 ^3/uL (0-0.2) Nucleated Red Blood Cells 0.0 % Sodium Level 141 mmol/L (136-145) Potassium Level 3.6 mmol/L (3.5-5.1) Chloride Level 105 mmol/L (98-107) Carbon Dioxide Level 25 mmol/L (20-31) Anion Gap 11 (5-15) Blood Urea Nitrogen 7 mg/dL (9-23) Creatinine 0.69 mg/dL (0.550-1.02) Glomerular Filtration Rate Calc 115 mL/min (>90) BUN/Creatinine Ratio 10.1 (10.0-20.0) Serum Glucose 99 mg/dL (74-106) Calcium Level 8.8 mg/dL (8.7-10.4) Total Bilirubin 0.5 mg/dL (0.2-1.0) Direct Bilirubin 0.2 mg/dL (<0.3) Aspartate Amino Transferase (AST) 29 U/L (13-40) Alanine Aminotransferase (ALT) 62 U/L (7-40) Alkaline Phosphatase 74 U/L (46-116) Total Protein 6.8 g/dL (5.7-8.2) Albumin 3.9 g/dL (3.2-4.8) Magnesium Level 1.9 mg/dL (1.6-2.6) C-Reactive Protein High Sensitivity 12.08 mg/dL (<1.0) Thyroid Stimulating Hormone (TSH) 2.72 uIU/mL (0.55-4.78) Hepatitis A IgM Antibody Negative Hepatitis B Surface Antigen Negative (Negative) Hepatitis B Core IgM Antibody Negative (Negative) Hepatitis C Antibody Negative (Negative) Urine Color Colorless (Yellow) Urine Clarity Clear (Clear) Urine pH 6.5 (5.0-9.0) Urine Specific [place] 1.004 (1.001-1.035) Urine Protein Negative (Negative) Urine Ketones Negative (Negative) Urine Blood Negative /uL (Negative) Urine Nitrite Negative (Negative) Urine Bilirubin Negative (Negative) Urine Urobilinogen Normal mg/dL (Negative) Urine Leukocyte Esterase Negative /uL (Negative) Urine RBC 1 /hpf (0 - 4) Urine Microscopic WBC 1 /HPF (0-5) Urine Squamous Epithelial Cells Few /hpf (<5) Urine Bacteria None seen /hpf (None Seen) Urine Glucose Normal mg/dL (Normal) Urine Test Negative (Negative) Prothrombin Time 10.9 sec (9.3-11.8) Prothrombin Time INR 1.03 (0.9-1.15) Activated Partial Thromboplast Time 29.1 SEC (24.5-34.5) Hemoglobin A1c 5.3 % A1C (<5.7) Lactic Acid Level 1.2 mmol/L (0.4-2.0) Triglycerides Level 110 mg/dL (< 150) Cholesterol Level 179 mg/dL (< 200) LDL Cholesterol 113 mg/dL (< 100) HDL Cholesterol 56 mg/dL (40-59) Lipase 30 U/L (12-53) Other Laboratory Tests 06/17/25 06:03 Brief Hx & Hospital Course: History on admission: 34-year-old female with past medical history of irritable bowel syndrome presented with complaints of lower abdominal pain right greater than left and some associated chills for one day. She described pain as sharp, 10/10, increases with movement and urination, radiates to right flank, associated with subjective fever and headaches. She has history of UTI with last episode in October this year, managed with antibiotic taken at home, unsure of antibiotic (obtain during a visit in [place]). Her last menstrual period was 05/30/2025, 4 day irregular cycle. She also reported an episode of bloody discharge per vagina last week outside of menstrual cycle. Denies any dysuria, chest pain, shortness of breath, nausea, vomiting, diarrhea, constipation. Brief hospital course: Patient had tachycardia, tachypnea and leukocytosis on arrival. Labs also showed mild transaminitis, liver ultrasound showing hepatic steatosis. Pelvic ultrasound shows 2.8 cm right adnexal cyst. Patient was started on IV fluids, antibiotics cefepime. Symptomatic management with pain medications and Zofran was given. CT abdomen done to rule out appendicitis. Her blood cultures show no bacterial growth. Today, patient's vital signs have normalized and WBCs are trending down. Patient is stable for discharge on oral antibiotics and we will follow closely with collective bargaining specialist and PCP. Conditions treated during stay: Sepsis likely due to pelvic inflammatory disease Complicated UTI with pyelonephritis, possible Right adnexal cyst Hepatomegaly and hepatic steatosis likely due to NAFLD Mild Transaminitis due to NAFLD Hstory of section History of tubectomy Cholelithiasis without acute cholecystitis Hepatic steatosis Appendicitis, ruled out Plan: Complete antibiotic course with doxycycline and metronidazole for 7 days Follow up in discharge clinic in 1 week Follow up with PCP in 1 week Follow up with Quality Assurance Assessor outpatient Consults/Reason for consult assistant toddler teacher on board, recommended outpatient follow-up for Pap and follow up of cyst. Operations or Procedures EXAM DESCRIPTION: CT CT AB PEL WITH IV CON ONLY CLINICAL HISTORY: R/O APPENDICITIS COMPARISON: US PELVIC on DOS: 06/15/25, CT CT AB PEL WO CON-NO ORAL OR IV on DOS: 06/15/25 TECHNIQUE: CT abdomen and pelvis with IV contrast was performed. Coronal and sagittal MPR images were generated. 17.08 CTDI, DLP = 17.08 / 950.87 Dose reduction technique with one or more of the following methods was performed: Automated exposure control, adjustment of the mA and/or kV according to patient size, use of iterative reconstruction technique FINDINGS: Lower chest: Clear lung bases. Liver: Diffusely decreased in attenuation. . Biliary: Noncalcified gallstones in the gallbladder. No gallbladder wall thickening. No pericholecystitc fluid.. No biliary ductal dilatation. Pancreas: No fat stranding or focal lesion. Spleen: Normal in size.. No abnormalities detected Adrenal glands: No nodularity. Kidneys: Symmetric enhancement. No hydroureteronephrosis. 5 cm left renal cyst. Bladder: No bladder wall thickening. Reproductive organs: Normal. Bowel: No bowel wall thickening or dilatation. Normal appendix. Peritoneum: No free fluid. No free air. Vessels: Normal caliber abdominal aorta. Lymph nodes: No suspicious lymph nodes. Soft tissues: Unremarkable. . Osseous structures: No acute fracture or subluxation. No suspicious osseous lesions. Degenerative changes of the visualized thoracolumbar spine. IMPRESSION: 1. No evidence of appendicitis. 2. Cholelithiasis without evidence of acute cholecystitis. 3. Hepatic steatosis. INDICATION: Evaluate gallbladder TECHNIQUE: Multiple real-time sonographic images of the abdomen were obtained. COMPARISON: None FINDINGS: Increased parenchymal echogenicity consistent steatosis. The liver measures 16.7 cm. No intrahepatic biliary ductal dilatation is noted. The gallbladder wall measures 0.24 cm and is unremarkable. Gallstones. The common duct measures 0.4 cm and is unremarkable. No pericholecystic fluid is noted. Negative sonographic Angeles's sign The right kidney measures 9.1cm. No hydronephrosis. The pancreas is not well visualized due to obscuration from bowel gas. The visualized portions of the IVC and aorta are grossly unremarkable. IMPRESSION: 1. Cholelithiasis with a negative sonographic angeles's sign. Procedure: US PELVIC 06/15/2025 09:53 PM Indication: lower abd pain Comparison: US TRANSVAGINAL US NON OB on DOS: 06/15/25 Technique: Real-time grayscale and color images were obtained . FINDINGS: Limited evaluation. UTERUS: Anteverted, measuring 11.7 x 5.3 x 6.6 cm in length. Homogeneous myometrium without a discrete lesion. Small cystic lesions in the region of the cervix. ENDOMETRIAL STRIPE: 6 mm in thickness. Homogenous echotexture. No fluid in the endometrial canal. CERVIX: Few subcentimeter simple Nabothian cysts are seen. RIGH OVARY: 4.2 x 3.1 x 3.5 cm in length. 23 mL in volume. Preserved vascular flow. 2.8 cm right adnexal cyst. LEFT OVARY: Not visualized. OTHER: None. IMPRESSION: 1. 2.8 cm right adnexal cyst. ------- Exam: CT CT AB PEL WO CON-NO ORAL OR IV History: abd pain Comparison Study: None TECHNIQUE: Multidetector CT of the abdomen and pelvis was performed from lung bases to pubic symphysis. Imaging was performed without IV contrast. Axial, coronal, and sagittal multiplanar reformats were obtained from the axial data set by the technologist. RADIATION DOSE: CTDI vol 14.65 mGy. DLP 970.4 mGy.cm Findings: Limited evaluation of the solid organs in the absence of IV contrast. Lungs: The lung bases are clear. Liver: Diffuse hypoattenuation of the liver suggestive of hepatic steatosis. Mild hepatomegaly. Spleen: Unremarkable. Pancreas: Unremarkable. Gallbladder: Unremarkable. Adrenals: Unremarkable Kidneys: Left renal cysts. No hydronephrosis. Pelvic Viscera: Unremarkable. Vasculature: Unremarkable. Retroperitoneum: Unremarkable. Bowel: No bowel obstruction. No CT evidence of appendicitis. Musculoskeletal: Unremarkable. Soft tissues: Unremarkable Impression: 1. No acute abdominopelvic abnormality. 2. Hepatomegaly and hepatic steatosis. INDICATION: sepsis TECHNIQUE: Frontal view of the chest. COMPARISON: None FINDINGS/IMPRESSION: The lungs are clear. The cardiomediastinal silhouette is unremarkable. No pleural effusion or pneumothorax. No acute osseous abnormality. Condition at Discharge: Stable Final Diagnosis/Problems List Sepsis likely due to pelvic inflammatory disease Complicated UTI with pyelonephritis, possible Right adnexal cyst Hepatomegaly and hepatic steatosis likely due to NAFLD Mild Transaminitis due to NAFLD Hstory of section History of tubectomy Cholelithiasis without acute cholecystitis Hepatic steatosis Appendicitis, ruled out Discharge Disposition: Home Discharge Instruct/Medications Diet: Regular Activity: No Restrictions, As Tolerated Follow Up/Referral: Follow up in discharge clinic in 1 week Follow up with PCP in 1 week Follow up with Quality Assurance Assessor outpatient Medications: As per EHR New Medications: Doxycycline Hyclate (Doxycycline Hyclate) 100 Mg Tab 1 TAB PO BID for 7 Days, #14 TAB Metronidazole (Flagyl) 500 Mg Tab 1 TAB PO TID for 7 Days, #21 TAB Scheduled Doxycycline Hyclate (Doxycycline Hyclate), 1 TAB PO BID Metronidazole (Flagyl), 1 TAB PO TID Discharge Statement: "Patient was advised to return to the ER or call 911 if any headaches, dizziness, shortness of breath, chest pain, abdominal pain, bleeding, fevers, or worsening of medical condition. Patient was counseled about treatment plan, medications, possible side effects, patientverbalized understanding. All questions were answered to the best of my ability. This discharge took greater then 30 minutes in planning, reviewing documentation, counseling the patient, and discussing with other team members." ASSESSMENT ASSESSMENT Assessment Sepsis likely due to PID Date of Service: Jun 17, 2025 Billing Provider: ARNAUD DAVILA MD Common Visit Codes: 03487-PRR/OBS DISCH DAY >30min THOMPSON CASAREZ RESIDENT Jun 17, 2025 14:32
[2025-06-19 03:08] LABS: Chlamydia Trachomatis, NAA Negative (Negative); Neisseria gonorrhoeae, NAA Negative (Negative)
== END 2025-06-17 13:35 | disposition home or self-care (01) | DRG 720 ==
LOC: ER 19:13 → OVERFLOW 21:00 → WEST WING 23:19
PROVIDERS: ADMIT Internal Medicine Geriatric Medicine; ATTEND Internal Medicine Geriatric Medicine
DX: A41.9 Sepsis, unspecified organism (principal); R16.0 Hepatomegaly, not elsewhere classified; E27.8 Other specified disorders of adrenal gland; N12 Tubulo-interstitial nephritis, not specified as acute or chronic; K76.0 Fatty (change of) liver, not elsewhere classified; N73.9 Female pelvic inflammatory disease, unspecified; K80.20 Calculus of gallbladder without cholecystitis without obstruction; I10 Essential (primary) hypertension; R74.01 Elevation of levels of liver transaminase levels; N83.201 Unspecified ovarian cyst, right side; Z98.891 History of uterine scar from previous surgery
CPT/HCPCS: 36415; 71045; 74176; 74177; 76705; 76830; 76856; 80048; 80053; 80061; 80074; 80076; 81001; 81025; 83036; 83605; 83690; 83735; 84443; 85025; 85610; 85730; 86141; 87040; 87081; 87086; 96365; G0378; J3490